=== PATIENT | male | born 1955 | race Caucasian/White ===

== ENCOUNTER → 2017-06-04 | Outpatient (CLI) | payer OTHER | END | disposition home or self-care (01) | LOC: CFH 09:05 | PROVIDERS: ATTEND Family Medicine | DX: M51.37 Other intervertebral disc degeneration, lumbosacral region (principal); M47.897 Other spondylosis, lumbosacral region; M43.16 Spondylolisthesis, lumbar region | CPT/HCPCS: 72100 ==

== ENCOUNTER → 2017-08-06 | Outpatient (CLI) | payer OTHER | END | disposition home or self-care (01) | LOC: CFH 08:15 | PROVIDERS: ATTEND Family Medicine | DX: R05 Cough (principal); R51 Headache | CPT/HCPCS: 70551; 71046 ==

== ENCOUNTER 2018-01-17 05:27 | Observation (INO) | payer OTHER ==
[~2018-01-17] VITALS: Ht 180.3 cm; Wt 84.1 kg
[2018-01-17] MEDS ORDERED: ASPIRIN 81 MG TABLET CHEW PO ONE (06:00)
[2018-01-17] MEDS ORDERED: ASPIRIN 81 MG TABLET CHEW ONE (06:00)
[2018-01-17] MEDS ORDERED: AMLO2.5T PO (06:04)
[2018-01-17] MEDS ORDERED: ATOR20TA9 PO (06:04)
[2018-01-17] MEDS ORDERED: LISI-420 PO (06:04)
[2018-01-17 06:08] LABS: BASOPHILS # (AUTO) 0.02 x10^3/uL (0-0.1); BASOPHILS % (AUTO) 0 % (0-1); EOSINOPHILS # (AUTO) 0.25 x10^3/uL (0-0.4); EOSINOPHILS % (AUTO) 4 % (1-7); LYMPHOCYTES # (AUTO) 1.75 x10^3/uL (1-3.4); LYMPHOCYTES % (AUTO) 28 % (22-44); MD NO; MEAN CORPUSCULAR HEMOGLOBIN 31.6 pg (27.5-34.5); MEAN CORPUSCULAR HGB CONC 33.8 g/dL (33.2-36.2); MEAN CORPUSCULAR VOLUME 93.3 fL (81-97); MEAN PLATELET VOLUME 9.6 fL (7.4-10.4); MONOCYTES # (AUTO) 0.47 x10^3/uL (0.2-0.8); MONOCYTES % (AUTO) 8 % (2-9); NEUTROPHILS % (AUTO) 60 % (42-75); PLATELET COUNT 166 x10^3/uL (130-400); RED BLOOD COUNT 4.98 x10^6/uL (4.38-5.82); RED CELL DISTRIBUTION WIDTH 13.6 % (9.4-14.8)
[2018-01-17 06:18] LABS: ANION GAP 6 mmol/L (5-15); CALCIUM 9.2 mg/dL (8.5-10.1); CHLORIDE 109 mmol/L (98-107); CREATININE 1.12 mg/dL (0.7-1.3)
[2018-01-17 06:22] LABS: TROPONIN I < 0.015 ng/mL (0.000-0.045)
[2018-01-17] MEDS ORDERED: NITROGLYCERIN SINGLE TAB 0.4 MG SL PRN (06:30)
[2018-01-17] MEDS ORDERED: SODIUM CHLORIDE FLUSH 10ML SYR IVF PRN (07:30)
[2018-01-17] MEDS ORDERED: ONDANSETRON 2MG/ML, 2ML IVPush PRN (08:00)
[2018-01-17] MEDS ORDERED: POLYETHYLENE GLYCOL 17 GM PACKET PO PRN (08:00)
[2018-01-17] MEDS ORDERED: ACETAMINOPHEN 325 MG TABLET PO PRN (08:00)
[2018-01-17] MEDS: SODIUM CHLORIDE 0.9% 1,000 ML IV SCH ×2 (09:09→20:04)
[2018-01-17] MEDS: ENOXAPARIN 40 MG/0.4 ML SQ SCH (09:09)
[2018-01-17 11:04] LABS: TROPONIN I < 0.015 ng/mL (0.000-0.045)
[2018-01-17] MEDS ORDERED: REGADENOSON 0.4 MG/5 ML SYRINGE ONE ×2 (11:46→11:48)
[2018-01-17 13:45] VITALS: BP 127/78
[2018-01-17 15:30] VITALS: BP 125/84
[2018-01-17 17:26] LABS: TROPONIN I < 0.015 ng/mL (0.000-0.045)
[2018-01-17 18:51] VITALS: BP 121/77
[2018-01-17] MEDS ORDERED: ATORVASTATIN 20 MG TABLET PO SCH (21:00)
[2018-01-18 01:53] VITALS: BP 110/70
[2018-01-18] MEDS: SODIUM CHLORIDE 0.9% 1,000 ML IV SCH (02:03)
[2018-01-18 05:31] LABS: CHOL/HDL RATIO 2.8; LDL/HDL RATIO 1.4 (0.5-3.0)
[2018-01-18 06:50] VITALS: BP 113/76
[2018-01-18] MEDS: ENOXAPARIN 40 MG/0.4 ML SQ SCH (07:55)
[2018-01-18] MEDS ORDERED: LISINOPRIL MC SCH (10:00)
[2018-01-18] MEDS ORDERED: AMLODIPINE 2.5 MG TABLET PO SCH (10:00)
[2018-01-18] MEDS ORDERED: LISINOPRIL 20 MG TABLET PO ONE (10:30)
[2018-01-18 12:20] VITALS: BP 123/81
[2018-01-19] MEDS ORDERED: LISINOPRIL 20 MG TABLET PO SCH (09:00)
== END 2018-01-18 17:16 | disposition home or self-care (01) ==
LOC: ED 07:20 → EDIP 07:21 → INTOOBSV 07:21 → ED 07:22 → SUATTDRO 07:40 → 5SO 08:31
PROVIDERS: ADMIT Hospitalist; ATTEND Hospitalist
DX: R07.89 Other chest pain (principal); E87.8 Other disorders of electrolyte and fluid balance, not elsewhere classified; I10 Essential (primary) hypertension; E78.5 Hyperlipidemia, unspecified; K21.9 Gastro-esophageal reflux disease without esophagitis; Z79.82 Long term (current) use of aspirin
CPT/HCPCS: 36415; 70551; 71045; 78452; 80048; 80061; 82040; 84484; 85025; 93005; 93017; 93306; 93971; 96372; 97162; 97165; 99285; A9502; C9898; G0378; G8978; G8979; G8980; J1650; J2785; J7030